=== PATIENT | male | born 1990 | race Caucasian/White ===

== ENCOUNTER 2021-11-14 15:41 | Outpatient (REF) | payer BC, SELFPAY ==
--- NOTE | ~2021-11-14 | XR_ITS ---
EXAMINATION: XR ANKLE, RIGHT CLINICAL INFORMATION: Sprain. COMPARISON: None TECHNIQUE: AP, lateral, and mortise views of the right ankle. FINDINGS: There is a tiny bone avulsion fragment inferior tip of lateral malleolus with mild lateral malleolar soft tissue swelling. No additional fracture seen. Ankle mortise and subtalar joints are normal. XR/XR ankle RT min 3V IMPRESSION: Small avulsion fracture fragment tip of lateral malleolus with mild lateral malleolar soft tissue swelling.
== END 2021-11-14 15:42 | disposition home or self-care (01) ==
LOC: HO.HMGCX 15:41
PROVIDERS: Visit Provider Internal Medicine
DX: S93.401A Sprain of unspecified ligament of right ankle, initial encounter (principal)
CPT/HCPCS: 73610

== ENCOUNTER → 2021-11-24 08:32 | Outpatient (BNVA) | payer BC, SELFPAY | PROVIDERS: Visit Provider Physician Assistant ==